=== PATIENT | female | born 1960 ===

== ENCOUNTER 2018-10-05 08:02 | Day surgery (SDC) | payer MEDICARE, MEDICAID ==
[~2018-10-05 08:02] MED LIST: HYDROmorphone 0.5 mg/0.5 ml ISec IVP PRN
[2018-10-05 08:38] VITALS: BMI 30.3
[2018-10-05] MEDS ORDERED: Propofol 10 mg/ml Inj (20 ML) ONE (08:49)
[2018-10-05] MEDS ORDERED: Midazolam 2 MG/2 ML VIAL ONE (08:50)
[2018-10-05] MEDS ORDERED: Iohexol 240 (50 ml) ONE (08:54)
[2018-10-05] MEDS ORDERED: cefTRIAXone 1 gm 1 GM/100 ML BAG IVPB ONE (08:54)
[2018-10-05 10:40] VITALS: O2SAT 97
[2018-10-05 11:31] VITALS: BP 133/66; PULSE 62; RESP 15; TEMP 97.7
--- NOTE | 2018-10-05 13:53 | OP ---
PROCEDURE DATE: 10/05/2018 PREOPERATIVE DIAGNOSIS: Right renal calculus. POSTOPERATIVE DIAGNOSIS: Right renal calculus. PROCEDURE: Cystoscopy with right retrograde and double-J stent placement. TYPE OF ANESTHESIA: General. DESCRIPTION OF PROCEDURE: The patient was placed on the operating room table in dorsal lithotomy position. The area of the groin was draped and prepped in a sterile manner. I used a #21 cystoscope to enter the bladder atraumatically, identified the right ureteral orifice, placed an open-ended ureteral catheter to the level of renal pelvis. At that time, I injected some contrast and was able to see clearly the upper pole stone. At this time then, I used that open-ended catheter as a guide for the sensor wire, placed the sensor wire and removed the open-ended catheter and then over that sensor wire, inserted a 6-Hungarian multilength double-J stent, fluoroscopically placed under good position. Once this was done, the instrumentation was removed. The patient was taken from the operating room in good condition. BLOOD LOSS: Zero. Bassam Mo MD
--- NOTE | 2018-10-05 16:06 | RAD ---
Date of service: 10/05/2018 PROCEDURE: Intraoperative Fluoroscopy. HISTORY: RT RENAL CALCULI FINDINGS: Fluoroscopic assistance was provided for cystoscopy. Please refer to the operative report from PIERRE Pollack. Total fluoroscopic time (continuous mode) utilized during the procedure 31.3 seconds. Dose report: DLP [id number] (mGy/m2)
== END 2018-10-05 11:00 | disposition home or self-care (01) ==
LOC: C.SDS 08:02
PROVIDERS: ATTEND Urology
DX: N20.0 Calculus of kidney (principal)
CPT/HCPCS: 52332; C1725; C1758; C1769; J0696; Q9966